=== PATIENT | female | born 1990 | race Caucasian/White ===

== ENCOUNTER 2019-12-27 11:42 | Inpatient (IN) | payer BC ==
--- NOTE | 2019-12-27 13:15 | US ---
Biophysical profile: Multiple real-time images were obtained transabdominally. Comparison: Previous obstetrical ultrasound of 08/16/19. Dates: Current ultrasound: REJI 01/16/20, gestational age 37 weeks 1 day Earliest ultrasound (08/16/19): REJI 12/29/19, gestational age 39 weeks 5 days presentation: Cephalic Placenta: Anterior Amniotic fluid: JUICE 15.62 cm Measurements: BPD: 8.94 cm - 36 weeks 2 days Head circumference: 31.95 cm - 36 weeks 0 days Abdominal circumference: 34.29 cm - 38 weeks 2 days Estimated weight: 3241 g (7 lbs. 2 oz.), estimated weight is 68th percentile for age by current ultrasound Heart rate: 138 BPM Cervical length: 3.3 cm Growth curves: Various growth parameters are variable between the -2 and mean standard deviation lines. Growth is felt to be appropriate from prior study when allowing for variability at this later gestational age. Biophysical profile: movement 0, breathing movement 2, tone 0, amniotic fluid volume 2 Impression: 1. Single intrauterine fetus currently cephalic in presentation. Dates as noted above. 2. growth is felt to be appropriate when allowing for variability at this later gestational age. 3. For out of 8 on biophysical profile. Diagnostic code #5 This report was dictated in MDT
[2019-12-27] MEDS ORDERED: Sodium Chloride 0.9% 10 ML Syringe FLUSH PRN (13:39)
[2019-12-27] MEDS ORDERED: Ondansetron 4 MG/2 ML SDV IVPUSH PRN (13:39)
[2019-12-27] MEDS ORDERED: Nalbuphine 10 MG/ML Syringe IVPUSH PRN (13:39)
[2019-12-27] MEDS ORDERED: Oxytocin/Lactated Ringers 10 UNIT/1,000 ML BAG IV SCH (13:45)
--- NOTE | 2019-12-27 14:15 | PCM.LDHP ---
L&D History of Present Illness - General Date of Service: 12/27/19 Admit Problem/Dx: Patient Status Order with Admit Dx/Problem 12/27/19 11:57 Patient Status [ADT] Routine 12/27/19 13:39 Patient Status [ADT] Routine 12/27/19 13:58 Admission Status [Patient Status] [ADT] Routine Admission Diagnosis/Problem Admission Diagnosis/Problem Source of Information: Patient History Limitations: Reports: No Limitations - History of Present Illness Introduction:: 29 y/o REJI 12/31/2019 EGA 39w3d [facility] c/o decreased movement. NST non-reactive in clinic, with irregular contractions noted. Patient stated she had been contractions on and off since yesterday. Patient sent to L&D for NST (which was reactive) and BPP also performed 11/19 with 0 for tone and 0 for movement. Cervix 3 cm and 100 % effaced, posterior, soft, vertex at 0 station. Amnipotomy performed at 1341 hrs, clear fluid. GBS negative. 06/06/2019 O positive, antibody screen negative, Hgb/Hch 12.3/37.3 Platelets [id number], rubella immune, urine culture mixed gabriele, HBsAg negative, HIV negative. GC/CT neg. RPR neg. 09/25/2019 H/H 10.9/32.6 Plt [id number], OBGS 125, 11/27/2019 GBS negative. Plan delivery, discussed with patient and and both in agreement prior to Amniotomy. 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 (See Below) (LSIL pap 2016) : 1 Para: 0 (0000) H&P Review of Systems - Review of Systems: Review Of Systems: See Below General: Reports: No Symptoms HEENT: Reports: No Symptoms Pulmonary: Reports: No Symptoms Cardiovascular: Reports: No Symptoms Gastrointestinal: Reports: No Symptoms Genitourinary: Reports: No Symptoms Musculoskeletal: Reports: No Symptoms Skin: Reports: No Symptoms Psychiatric: Reports: No Symptoms Neurological: Reports: No Symptoms Hematologic/Lymphatic: Reports: No Symptoms Immunologic: Reports: No Symptoms L&D Exam - Exam Exam: See Below - Vital Signs Weight: 181 lb 6.4 oz - OB Specific Fundal Height In cm: 39 Contraction Duration (sec): 60 Contraction Frequency (min): 5 Contraction Intensity: Mild Movement: Active Heart Tones: Present Heart Tones per Min: 135 Heart Rate (FHR) Variability: Moderate (6-25 bmp) Presentation: Vertex - Martin Score Martin Score Cervix Position: Posterior Martin Score Consistency: Soft Martin Score Effacement: >80% Martin Score Dilation: 3-4 cm Martin Score 's Station: -1 ,0 Martin Score Total: 9 - Exam General: Alert, Oriented HEENT: Conjunctiva Clear, Pupils Equal Neck: Supple, Trachea Midline Lungs: Clear to Auscultation, Normal Respiratory Effort Cardiovascular: Regular Rate, Regular Rhythm GI/Abdominal Exam: Normal Bowel Sounds, Soft, Non-Tender Genitourinary: Normal external exam Extremities: Normal Inspection, Non-Tender, No Pedal Edema, Normal Capillary Refill Skin: Warm, Dry, Intact Neurological: Reflexes Equal Bilateral Psychiatric: Alert, Normal Affect, Normal Mood - Problem List (1) 39 weeks gestation of SNOMED Code(s): 94539808 ICD Code: Z3A.39 - 39 WEEKS GESTATION OF Status: Acute Current Visit: Yes (2) Decreased movement affecting management of mother, antepartum SNOMED Code(s): 450782125, 743800607 ICD Code: O36.8190 - DECREASED MOVEMENTS, UNSP TRIMESTER, UNSP Status : Acute Current Visit: Yes Qualifiers: Fetus number: single or unspecified fetus Qualified Code(s): O36.8190 - Decreased movements, unspecified trimester, not applicable or unspecified (3) Abnormal test SNOMED Code(s): 488441155, 773290312 ICD Code: O28.9 - UNSP ABNORMAL FINDINGS ON SCREENING OF MOTHER Status: Acute Current Visit: Yes Problem List Initiated/Reviewed/Updated: No Orders Last 24hrs: Active Orders 24 hr Category Date Time Status Admission Status [Patient Status] [ADT] Routine ADT 12/27/19 13:58 Active Patient Status [ADT] Routine ADT 12/27/19 13:39 Active Activity as Tolerated [RC] PFP Care 12/27/19 13:39 Active Communication Order [RC] ASDIRECTED Care 12/27/19 13:39 Active Heart Tones [RC] ASDIRECTED Care 12/27/19 13:39 Active Non Stress Test [RC] PER UNIT ROUTINE Care 12/27/19 11:57 Active Notify Provider [RC] PFP Care 12/27/19 13:39 Active Notify Provider [RC] PRN Care 12/27/19 13:39 Active Peripheral IV Care [RC] . DIRECTED Care 12/27/19 13:39 Active Vital Signs [RC] PER UNIT ROUTINE Care 12/27/19 11:57 Active Regular Diet [DIET] Diet 12/27/19 Dinner Active CBC WITH AUTO DIFF [HEME] Stat Lab 12/27/19 13:55 Received RAPID PLASMA REAGIN,RPR [CHEM] Routine Lab 12/27/19 13:55 Received TYPE AND SCREEN [BBK] Stat Lab 12/27/19 13:55 Received Lactated Ringers [Ringers, Lactated] 1,000 ml Med 12/27/19 13:45 Active IV ASDIRECTED Lidocaine 1% [Xylocaine 1%] Med 12/27/19 18:00 Once 50 ml INJECT ONETIME ONE Nalbuphine [Nubain] Med 12/27/19 13:39 Active 10 mg IVPUSH Q2H PRN Ondansetron [Zofran] Med 12/27/19 13:39 Active 4 mg IVPUSH Q4H PRN Oxytocin/Lactated Ringers [Pitocin in LR 10 Units/1,000 Med 12/27/19 13:45 Active ML] 10 unit in 1,000 ml IV .CONTINUOUS Sodium Chloride 0.9% [Saline Flush] Med 12/27/19 13:39 Active 10 ml FLUSH ASDIRECTED PRN Electronic Heart Tones Ext w TOCO [WOMSER] Oth 12/27/19 13:39 Ordered Routine Electronic Heart Tones Internal [WOMSER] Per Unit Oth 12/27/19 13:39 Ordered Routine Peripheral IV Insertion Adult [OM.PC] Routine Oth 12/27/19 13:39 Ordered Resuscitation Status Routine Resus Stat 12/27/19 11:57 Ordered Medication Orders Lactated Ringer's (Ringers, Lactated) 1,000 mls @ 100 mls/hr IV ASDIRECTED LISA Oxytocin/Lactated Ringer's (Pitocin In Lr 10 Units/1,000 Ml) 10 unit in 1,000 mls @ 500 mls/hr IV .CONTINUOUS LISA Lidocaine HCl (Xylocaine 1%) 50 ml INJECT ONETIME ONE Stop: 12/27/19 18:01 Nalbuphine HCl (Nubain) 10 mg IVPUSH Q2H PRN PRN Reason: Pain Ondansetron HCl (Zofran) 4 mg IVPUSH Q4H PRN PRN Reason: Nausea/Vomiting Sodium Chloride (Saline Flush) 10 ml FLUSH ASDIRECTED PRN PRN Reason: Keep Vein Open Assessment/Plan Comment:: Plan delivery.
[2019-12-27] MEDS: Lactated Ringers 1,000 ML IV SCH ×3 (15:00→16:53)
[2019-12-27] MEDS ORDERED: Bupivacaine/fentaNYL/NS 100 ML Bag EPIDUR PRN (15:24)
[2019-12-27] MEDS ORDERED: ePHEDrine 50 MG/ML SDV IVPUSH PRN (15:24)
[2019-12-27] MEDS ORDERED: fentaNYL 100 MCG/2 ML SDV EPIDUR PRN (15:24)
[2019-12-27] MEDS ORDERED: diphenhydrAMINE 50 MG/ML SDV IVPUSH PRN (15:24)
--- NOTE | 2019-12-27 16:26 | PCM.PREANE ---
Preanesthetic Assessment - Procedure Proposed Procedure: Epidural - Anesthesia/Transfusion/Family Hx Anesthesia History: No Prior Anesthesia Family History of Anesthesia Reaction: No Transfusion History: No Prior Transfusion(s) - Review of Systems General: No Symptoms Pulmonary: No Symptoms Cardiovascular: No Symptoms Gastrointestinal: Abdominal Pain Neurological: Other (Back injury from softball years ago, sciatic pain aggrivated by . ) Other: Reports: None - Physical Assessment Vital Signs: Last Vital Signs Temp 36.4 C 12/27/19 11:57 Pulse 74 12/27/19 11:57 Resp 15 12/27/19 11:57 BP 129/75 12/27/19 11:57 Pulse Ox 99 12/27/19 11:57 Height: 1.63 m Weight: 82.282 kg ASA Class: 2 Mental Status: Alert & Oriented x3 Airway Class: Mallampati = 1 Dentition: Reports: Normal Dentition Thyro-Mental Finger Breadths: 3 Mouth Opening Finger Breadths: 3 ROM/Head Extension: Full Lungs: Clear to Auscultation, Normal Respiratory Effort Cardiovascular: Regular Rate, Regular Rhythm - Lab Values: Laboratory Last Values WBC 12.72 K/mm3 (3.98-10.04) H 12/27/19 13:55 RBC 4.25 M/mm3 (3.98-5.22) 12/27/19 13:55 Hgb 12.7 gm/dl (11.2-15.7) D 12/27/19 13:55 Hct 38.3 % (34.1-44.9) 12/27/19 13:55 MCV 90.1 fl (79.4-94.8) 12/27/19 13:55 MCH 29.9 pg (25.6-32.2) 12/27/19 13:55 MCHC 33.2 g/dl (32.2-35.5) 12/27/19 13:55 RDW Std Deviation 43.7 fL (36.4-46.3) 12/27/19 13:55 Plt Count 265 K/mm3 (182-369) 12/27/19 13:55 MPV 9.9 fl (9.4-12.3) 12/27/19 13:55 Neut % (Auto) 73.6 % (34.0-71.1) H 12/27/19 13:55 Lymph % (Auto) 18.9 % (19.3-51.7) L 12/27/19 13:55 Clinch % (Auto) 6.7 % (4.7-12.5) 12/27/19 13:55 Eos % (Auto) 0.4 (0.7-5.8) L 12/27/19 13:55 Baso % (Auto) 0.2 % (0.1-1.2) 12/27/19 13:55 Neut # (Auto) 9.37 K/mm3 (1.56-6.13) H 12/27/19 13:55 Lymph # (Auto) 2.40 K/mm3 (1.18-3.74) 12/27/19 13:55 Clinch # (Auto) 0.85 K/mm3 (0.24-0.36) H 12/27/19 13:55 Eos # (Auto) 0.05 K/mm3 (0.04-0.36) 12/27/19 13:55 Baso # (Auto) 0.02 K/mm3 (0.01-0.08) 12/27/19 13:55 Manual Slide Review Normal smear 12/27/19 13:55 Blood Type O POSITIVE 12/27/19 13:55 Gel Antibody Screen Negative 12/27/19 13:55 - Allergies Allergies/Adverse Reactions: Allergies Allergy/AdvReac Type Severity Reaction Status Date / Time No Known Allergies Allergy Verified 12/27/19 11:57 - Acknowledgements Anesthesia Type Planned: Epidural Pt an Appropriate Candidate for the Planned Anesthesia: Yes Alternatives and Risks of Anesthesia Discussed w Pt/Guardian: Yes Pt/Guardian Understands and Agrees with Anesthesia Plan: Yes 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) (LSIL pap 2016) - Past Surgical History HEENT Surgical History: Reports: Other (See Below) Other HEENT Surgeries/Procedures: wisdom teeth extraction 2016 - SUBSTANCE USE Smoking Status *Q: Never Smoker Second Hand Smoke Exposure: No Recreational Drug Use History: No - HOME MEDS Home Medications: Home Meds Ferrous Sulfate [Iron] 1 mg PO DAILY 12/27/19 [History] Vit37/Iron/Folic Acid [Prenata] 1 each PO DAILY 12/27/19 [History] - CURRENT (IN HOUSE) MEDS Current Meds: Current Medications Diphenhydramine HCl (Benadryl) 25 mg IVPUSH Q6H PRN PRN Reason: pruritis Ephedrine Sulfate (Ephedrine Sulfate) 5 mg IVPUSH ASDIRECTED PRN PRN Reason: Hypotension Fentanyl (Sublimaze) 100 mcg EPIDUR Q3H PRN PRN Reason: Pain Last Admin: 12/27/19 15:51 Dose: 100 mcg Fentanyl/Bupivacaine HCl (Fentanyl/Bupivacaine/Ns 2 Mcg-0.125% 100 Ml) 100 ml EPIDUR ASDIRECTED PRN PRN Reason: Pain Last Admin: 12/27/19 15:51 Dose: 100 ml Lactated Ringer's (Ringers, Lactated) 1,000 mls @ 100 mls/hr IV ASDIRECTED LISA Last Admin: 12/27/19 15:50 Dose: 999 mls/hr Oxytocin/Lactated Ringer's (Pitocin In Lr 10 Units/1,000 Ml) 10 unit in 1,000 mls @ 500 mls/hr IV .CONTINUOUS LISA Lidocaine HCl (Xylocaine 1%) 50 ml INJECT ONETIME ONE Stop: 12/27/19 18:01 Nalbuphine HCl (Nubain) 10 mg IVPUSH Q2H PRN PRN Reason: Pain Ondansetron HCl (Zofran) 4 mg IVPUSH Q4H PRN PRN Reason: Nausea/Vomiting Sodium Chloride (Saline Flush) 10 ml FLUSH ASDIRECTED PRN PRN Reason: Keep Vein Open
[2019-12-27] MEDS ORDERED: Lidocaine 1% 50 ML MDV INJECT ONE (18:00)
[2019-12-27] MEDS ORDERED: Acetaminophen 325 MG Tab PO ONE (19:47)
--- NOTE | 2019-12-27 22:28 | PCM.SN.2 ---
- Free Text/Narrative Note: Patient has been pushing for about one hour. Turned off epidural to allow for more urge to push before patient becomes too exhausted. Cat I FHR.
--- NOTE | 2019-12-28 00:04 | PCM.SN.2 ---
- Free Text/Narrative Note: Patient pushing, epidural has been off x1 hour approximately. Vertex at +2/+3 station.
[2019-12-28] MEDS ORDERED: Lidocaine 1% 50 ML MDV ONE (01:13)
--- NOTE | 2019-12-28 01:38 | PCM.DEL ---
L & D Note - General Info Date of Service: 12/28/19 Mother's Due Date: 12/31/19 - Delivery Note Labor: Spontaneous, Augmented by Oxytocin Delivery Outcome: Livebirth (female liveborn 12/28/2018 at 0107 CHRISTOFER nuchal cord x1 under epidural with first degree laceration repaired with monocryl 3-0 x1. Weight 2910 g/6#6.6 oz. APGARS 7/8) Infant Delivery Method: Spontaneous Vaginal Delivery-Single Delivery Mode: Spontaneous Presentation: Right Occiput Anterior (CHRISTOFER) Nuchal Cord: Present (x1) Prep: Povidone-Iodine (Betadine Anesthesia Type: Combined Spinal Epidural, Local (for laceration repair) Anesthetic: Lidocaine (Xylocaine) 1% Plain Local Anesthetic Volume: Other (10 ml) Amniotic Fluid Description: Clear Episiotomy Type: None Laceration: 1st Degree Placenta: Intact, Spontaneous Cord: 3 Vessels Estimated Blood Loss: 250 Resuscitation Needed: No : Suctioned, Bulb Syringe, Cathether, Stimulated, Warmed, [place] Used, Warmer Used Provider: Chi Tubbs Score 1 min: 7 Score 5 min: 8 - General Info Date of Service: 12/28/19 Functional Status: Reports: Pain Controlled - Review of Systems General: Reports: No Symptoms HEENT: Reports: No Symptoms Pulmonary: Reports: No Symptoms Cardiovascular: Reports: No Symptoms Gastrointestinal: Reports: No Symptoms Genitourinary: Reports: No Symptoms Musculoskeletal: Reports: No Symptoms Skin: Reports: No Symptoms Neurological: Reports: No Symptoms Psychiatric: Reports: No Symptoms - Patient Data Vitals - Most Recent: Last Vital Signs Temp 99.2 F 12/27/19 19:56 Pulse 74 12/27/19 11:57 Resp 15 12/27/19 11:57 BP 129/75 12/27/19 11:57 Pulse Ox 99 12/27/19 11:57 Weight - Most Recent: 181 lb 6.4 oz I&O - Last 24 Hours: Intake & Output 12/27/19 12/27/19 12/28/19 14:59 22:59 06:59 Intake Total 240 Balance 240 Lab Results Last 24 Hours: Laboratory Results - last 24 hr 12/27/19 12/27/19 12/27/19 Range/Units 13:55 13:55 13:55 WBC 12.72 H (3.98-10.04) K/mm3 RBC 4.25 (3.98-5.22) M/mm3 Hgb 12.7 D (11.2-15.7) gm/dl Hct 38.3 (34.1-44.9) % MCV 90.1 (79.4-94.8) fl MCH 29.9 (25.6-32.2) pg MCHC 33.2 (32.2-35.5) g/dl RDW Std Deviation 43.7 (36.4-46.3) fL Plt Count 265 (182-369) K/mm3 MPV 9.9 (9.4-12.3) fl Neut % (Auto) 73.6 H (34.0-71.1) % Lymph % (Auto) 18.9 L (19.3-51.7) % [place] % (Auto) 6.7 (4.7-12.5) % Eos % (Auto) 0.4 L (0.7-5.8) Baso % (Auto) 0.2 (0.1-1.2) % Neut # (Auto) 9.37 H (1.56-6.13) K/mm3 Lymph # (Auto) 2.40 (1.18-3.74) K/mm3 [place] # (Auto) 0.85 H (0.24-0.36) K/mm3 Eos # (Auto) 0.05 (0.04-0.36) K/mm3 Baso # (Auto) 0.02 (0.01-0.08) K/mm3 Manual Slide Review Normal smear RPR Non-reactive (NONREACTIVE) Blood Type O POSITIVE Gel Antibody Screen Negative Med Orders - Current: Current Medications Diphenhydramine HCl (Benadryl) 25 mg IVPUSH Q6H PRN PRN Reason: pruritis Ephedrine Sulfate (Ephedrine Sulfate) 5 mg IVPUSH ASDIRECTED PRN PRN Reason: Hypotension Fentanyl (Sublimaze) 100 mcg EPIDUR Q3H PRN PRN Reason: Pain Last Admin: 12/27/19 15:51 Dose: 100 mcg Fentanyl/Bupivacaine HCl (Fentanyl/Bupivacaine/Ns 2 Mcg-0.125% 100 Ml) 100 ml EPIDUR ASDIRECTED PRN PRN Reason: Pain Last Admin: 12/27/19 15:51 Dose: 100 ml Lactated Ringer's (Ringers, Lactated) 1,000 mls @ 100 mls/hr IV ASDIRECTED LISA Last Infusion: 12/27/19 16:54 Dose: 200 mls/hr Oxytocin/Lactated Ringer's (Pitocin In Lr 10 Units/1,000 Ml) 10 unit in 1,000 mls @ 500 mls/hr IV .CONTINUOUS LISA Last Admin: 12/27/19 22:29 Dose: 500 mls/hr Nalbuphine HCl (Nubain) 10 mg IVPUSH Q2H PRN PRN Reason: Pain Ondansetron HCl (Zofran) 4 mg IVPUSH Q4H PRN PRN Reason: Nausea/Vomiting Sodium Chloride (Saline Flush) 10 ml FLUSH ASDIRECTED PRN PRN Reason: Keep Vein Open Discontinued Medications Acetaminophen (Tylenol) 650 mg PO NOW ONE Stop: 12/27/19 19:48 Last Admin: 12/27/19 19:56 Dose: 650 mg Lidocaine HCl (Xylocaine 1%) 50 ml INJECT ONETIME ONE Stop: 12/27/19 18:01 Lidocaine HCl (Xylocaine 1%) Confirm Administered Dose 50 ml .ROUTE .STK-MED ONE Stop: 12/28/19 01:14 - Exam General: Alert, Oriented HEENT: Pupils Equal, Mucous Membr. Moist/[place] Neck: Supple Lungs: Clear to Auscultation, Normal Respiratory Effort Cardiovascular: Regular Rate, Regular Rhythm (Female) Exam: Normal External Exam Extremities: Normal Inspection, Non-Tender, No Pedal Edema, Normal Capillary Refill - Problem List & Annotations (1) 39 weeks gestation of SNOMED Code(s): 89366651 Code(s): Z3A.39 - 39 WEEKS GESTATION OF Status: Acute Current Visit: Yes (2) Decreased movement affecting management of mother, antepartum SNOMED Code(s): 666140736, 649888307 Code(s): O36.8190 - DECREASED MOVEMENTS, UNSP TRIMESTER, UNSP Status : Acute Current Visit: Yes Qualifiers: Fetus number: single or unspecified fetus Qualified Code(s): O36.8190 - Decreased movements, unspecified trimester, not applicable or unspecified (3) Abnormal test SNOMED Code(s): 258498666, 472833373 Code(s): O28.9 - UNSP ABNORMAL FINDINGS ON SCREENING OF MOTHER Status: Acute Current Visit: Yes (4) Nuchal cord without compression, delivered, current hospitalization SNOMED Code(s): 49929148, 280567848 Code(s): O69.81X0 - LABOR AND DEL COMP BY CORD AROUND NECK, W/O COMPRSN, UNSP Status: Acute Current Visit: Yes (5) First degree perineal laceration during delivery SNOMED Code(s): 291476138 Code(s): O70.0 - FIRST DEGREE PERINEAL LACERATION DURING DELIVERY Status: Acute Current Visit: Yes - Problem List Review Problem List Initiated/Reviewed/Updated: No - My Orders Last 24 Hours: My Active Orders 12/27/19 11:57 Vital Signs [RC] PER UNIT ROUTINE Resuscitation Status Routine 12/27/19 13:39 Patient Status [ADT] Routine Activity as Tolerated [RC] PFP Communication Order [RC] ASDIRECTED Heart Tones [RC] ASDIRECTED Notify Provider [RC] PFP Notify Provider [RC] PRN Peripheral IV Care [RC] . DIRECTED Nalbuphine [Nubain] 10 mg IVPUSH Q2H PRN Ondansetron [Zofran] 4 mg IVPUSH Q4H PRN Sodium Chloride 0.9% [Saline Flush] 10 ml FLUSH ASDIRECTED PRN Electronic Heart Tones Ext w TOCO [WOMSER] Routine Electronic Heart Tones Internal [WOMSER] Per Unit Routine Peripheral IV Insertion Adult [OM.PC] Routine 12/27/19 13:45 Lactated Ringers [Ringers, Lactated] 1,000 ml IV ASDIRECTED Oxytocin/Lactated Ringers [Pitocin in LR 10 Units/1,000 ML] 10 unit in 1,000 ml IV .CONTINUOUS 12/27/19 13:58 Admission Status [Patient Status] [ADT] Routine 12/27/19 Dinner Regular Diet [DIET] - Plan Plan:: Plan delivery.
[2019-12-28] MEDS ORDERED: Docusate Sodium 100 MG Cap PO PRN (01:54)
[2019-12-28] MEDS ORDERED: Witch Hazel Medicated Pads 40/Jar TOP PRN (01:54)
[2019-12-28] MEDS ORDERED: Benzocaine/Menthol 20%-0.5% Spray 56 GM Canister TOP PRN (01:54)
[2019-12-28] MEDS ORDERED: Acetaminophen 325 MG Tab PO PRN (01:54)
[2019-12-28] MEDS ORDERED: Bupivacaine 0.25% 10 ML SDV ONE (03:00)
[2019-12-28] MEDS: Ibuprofen 600 MG Tab PO PRN ×3 (03:01→14:53)
[2019-12-29] MEDS: Ibuprofen 600 MG Tab PO PRN ×2 (02:32→09:52)
--- NOTE | 2019-12-29 10:53 | PCM.DCSUM1 ---
Discharge Summary - Hospital Course Free Text/Narrative:: [facility] LIVE L/D Delivery Note Patient Name: IMAN EUGENE Date of : 89 Patient Status: Inpatient Attending Provider: Chi Tubbs Date: 12/28/19 01:31 Initialization Date: 12/28/19 01:31 L & D Note - General Info Date of Service: 12/28/19 Mother's Due Date: 12/31/19 - Delivery Note Labor: Spontaneous, Augmented by Oxytocin Delivery Outcome: Livebirth (female liveborn 12/28/2018 at 0107 [address] nuchal cord x1 under epidural with first degree laceration repaired with monocryl 3-0 x1. Weight 2910 g/6#6.6 oz. APGARS 7/8) Delivery Method: Spontaneous Vaginal Delivery-Single Delivery Mode: Spontaneous Presentation: Right Occiput Anterior (CHRISTOFER) Nuchal Cord: Present (x1) Prep: Povidone-Iodine (Betadine Anesthesia Type: Combined Spinal Epidural, Local (for laceration repair) Anesthetic: Lidocaine (Xylocaine) 1% Plain Local Anesthetic Volume: Other (10 ml) Amniotic Fluid Description: Clear Episiotomy Type: None Laceration: 1st Degree Placenta: Intact, Spontaneous Cord: 3 Vessels Estimated Blood Loss: 250 Resuscitation Needed: No [place]: Suctioned, Bulb Syringe, Cathether, Stimulated, Warmed, [place] Used, Warmer Used Provider: Chi Tubbs Score 1 min: 7 Score 5 min: 8 - General Info Date of Service: 12/28/19 Functional Status: Reports: Pain Controlled - Review of Systems General: Reports: No Symptoms HEENT: Reports: No Symptoms Pulmonary: Reports: No Symptoms Cardiovascular: Reports: No Symptoms Gastrointestinal: Reports: No Symptoms Genitourinary: Reports: No Symptoms Musculoskeletal: Reports: No Symptoms Skin: Reports: No Symptoms Neurological: Reports: No Symptoms Psychiatric: Reports: No Symptoms - Patient Data Vitals - Most Recent: Last Vital Signs Temp 99.2 F 12/27/19 19:56 Pulse 74 12/27/19 11:57 Resp 15 12/27/19 11:57 BP 129/75 12/27/19 11:57 Pulse Ox 99 12/27/19 11:57 Weight - Most Recent: 181 lb 6.4 oz I&O - Last 24 Hours: Intake & Output 12/27/19 12/27/19 12/28/19 14:59 22:59 06:59 Intake Total 240 Balance 240 Lab Results Last 24 Hours: Laboratory Results - last 24 hr 12/27/19 12/27/19 12/27/19 Range/Units 13:55 13:55 13:55 WBC 12.72 H (3.98-10.04) K/mm3 RBC 4.25 (3.98-5.22) M/mm3 Hgb 12.7 D (11.2-15.7) gm/dl Hct 38.3 (34.1-44.9) % MCV 90.1 (79.4-94.8) fl MCH 29.9 (25.6-32.2) pg MCHC 33.2 (32.2-35.5) g/dl RDW Std Deviation 43.7 (36.4-46.3) fL Plt Count 265 (182-369) K/mm3 MPV 9.9 (9.4-12.3) fl Neut % (Auto) 73.6 H (34.0-71.1) % Lymph % (Auto) 18.9 L (19.3-51.7) % Reynolds % (Auto) 6.7 (4.7-12.5) % Eos % (Auto) 0.4 L (0.7-5.8) Baso % (Auto) 0.2 (0.1-1.2) % Neut # (Auto) 9.37 H (1.56-6.13) K/mm3 Lymph # (Auto) 2.40 (1.18-3.74) K/mm3 Reynolds # (Auto) 0.85 H (0.24-0.36) K/mm3 Eos # (Auto) 0.05 (0.04-0.36) K/mm3 Baso # (Auto) 0.02 (0.01-0.08) K/mm3 Manual Slide Review Normal smear RPR Non-reactive (NONREACTIVE) Blood Type O POSITIVE Gel Antibody Screen Negative Med Orders - Current: Current Medications Diphenhydramine HCl (Benadryl) 25 mg IVPUSH Q6H PRN PRN Reason: pruritis Ephedrine Sulfate (Ephedrine Sulfate) 5 mg IVPUSH ASDIRECTED PRN PRN Reason: Hypotension Fentanyl (Sublimaze) 100 mcg EPIDUR Q3H PRN PRN Reason: Pain Last Admin: 12/27/19 15:51 Dose: 100 mcg Fentanyl/Bupivacaine HCl (Fentanyl/Bupivacaine/Ns 2 Mcg-0.125% 100 Ml) 100 ml EPIDUR ASDIRECTED PRN PRN Reason: Pain Last Admin: 12/27/19 15:51 Dose: 100 ml Lactated Ringer's (Ringers, Lactated) 1,000 mls @ 100 mls/hr IV ASDIRECTED LISA Last Infusion: 12/27/19 16:54 Dose: 200 mls/hr Oxytocin/Lactated Ringer's (Pitocin In Lr 10 Units/1,000 Ml) 10 unit in 1,000 mls @ 500 mls/hr IV .CONTINUOUS LISA Last Admin: 12/27/19 22:29 Dose: 500 mls/hr Nalbuphine HCl (Nubain) 10 mg IVPUSH Q2H PRN PRN Reason: Pain Ondansetron HCl (Zofran) 4 mg IVPUSH Q4H PRN PRN Reason: Nausea/Vomiting Sodium Chloride (Saline Flush) 10 ml FLUSH ASDIRECTED PRN PRN Reason: Keep Vein Open Discontinued Medications Acetaminophen (Tylenol) 650 mg PO NOW ONE Stop: 12/27/19 19:48 Last Admin: 12/27/19 19:56 Dose: 650 mg Lidocaine HCl (Xylocaine 1%) 50 ml INJECT ONETIME ONE Stop: 12/27/19 18:01 Lidocaine HCl (Xylocaine 1%) Confirm Administered Dose 50 ml .ROUTE .STK-MED ONE Stop: 12/28/19 01:14 - Exam General: Alert, Oriented HEENT: Pupils Equal, Mucous Membr. Moist/Parkin Neck: Supple Lungs: Clear to Auscultation, Normal Respiratory Effort Cardiovascular: Regular Rate, Regular Rhythm (Female) Exam: Normal External Exam Extremities: Normal Inspection, Non-Tender, No Pedal Edema, Normal Capillary Refill - Problem List & Annotations (1) 39 weeks gestation of SNOMED Code(s): 86832808 Code(s): Z3A.39 - 39 WEEKS GESTATION OF Status: Acute Current Visit: Yes (2) Decreased movement affecting management of mother, antepartum SNOMED Code(s): 589009929, 463071933 Code(s): O36.8190 - DECREASED MOVEMENTS, UNSP TRIMESTER, UNSP Status : Acute Current Visit: Yes Qualifiers: Fetus number: single or unspecified fetus Qualified Code(s): O36.8190 - Decreased movements, unspecified trimester, not applicable or unspecified (3) Abnormal test SNOMED Code(s): 588179215, 826633198 Code(s): O28.9 - UNSP ABNORMAL FINDINGS ON SCREENING OF MOTHER Status: Acute Current Visit: Yes (4) Nuchal cord without compression, delivered, current hospitalization SNOMED Code(s): 46943127, 151725810 Code(s): O69.81X0 - LABOR AND DEL COMP BY CORD AROUND NECK, W/O COMPRSN, UNSP Status: Acute Current Visit: Yes (5) First degree perineal laceration during delivery SNOMED Code(s): 580323878 Code(s): O70.0 - FIRST DEGREE PERINEAL LACERATION DURING DELIVERY Status: Acute Current Visit: Yes - Problem List Review Problem List Initiated/Reviewed/Updated: No - My Orders Last 24 Hours: My Active Orders 12/27/19 11:57 Vital Signs [RC] PER UNIT ROUTINE Resuscitation Status Routine 12/27/19 13:39 Patient Status [ADT] Routine Activity as Tolerated [RC] PFP Communication Order [RC] ASDIRECTED Heart Tones [RC] ASDIRECTED Notify Provider [RC] PFP Notify Provider [RC] PRN Peripheral IV Care [RC] . DIRECTED Nalbuphine [Nubain] 10 mg IVPUSH Q2H PRN Ondansetron [Zofran] 4 mg IVPUSH Q4H PRN Sodium Chloride 0.9% [Saline Flush] 10 ml FLUSH ASDIRECTED PRN Electronic Heart Tones Ext w TOCO [WOMSER] Routine Electronic Heart Tones Internal [WOMSER] Per Unit Routine Peripheral IV Insertion Adult [OM.PC] Routine 12/27/19 13:45 Lactated Ringers [Ringers, Lactated] 1,000 ml IV ASDIRECTED Oxytocin/Lactated Ringers [Pitocin in LR 10 Units/1,000 ML] 10 unit in 1,000 ml IV .CONTINUOUS 12/27/19 13:58 Admission Status [Patient Status] [ADT] Routine 12/27/19 Dinner Regular Diet [DIET] - Plan Plan:: Plan delivery. HPI Initial Comments: [facility] LIVE L/D Delivery Note Patient Name: IMAN EUGENE Date of : 89 Patient Status: Inpatient Attending Provider: Chi Tubbs Date: 12/28/19 01:31 Initialization Date: 12/28/19 01:31 L & D Note - General Info Date of Service: 12/28/19 Mother's Due Date: 12/31/19 - Delivery Note Labor: Spontaneous, Augmented by Oxytocin Delivery Outcome: Livebirth (female liveborn 12/28/2018 at 0[address] [place] nuchal cord x1 under epidural with first degree laceration repaired with monocryl 3-0 x1. Weight 2910 g/6#6.6 oz. APGARS 7/8) Delivery Method: Spontaneous Vaginal Delivery-Single Delivery Mode: Spontaneous Presentation: Right Occiput Anterior (CHRISTOFER) Nuchal Cord: Present (x1) Prep: Povidone-Iodine (Betadine Anesthesia Type: Combined Spinal Epidural, Local (for laceration repair) Anesthetic: Lidocaine (Xylocaine) 1% Plain Local Anesthetic Volume: Other (10 ml) Amniotic Fluid Description: Clear Episiotomy Type: None Laceration: 1st Degree Placenta: Intact, Spontaneous Cord: 3 Vessels Estimated Blood Loss: 250 Resuscitation Needed: No : Suctioned, Bulb Syringe, Cathether, Stimulated, Warmed, [place] Used, Warmer Used Provider: Chi Tubbs Score 1 min: 7 Score 5 min: 8 - General Info Date of Service: 12/28/19 Functional Status: Reports: Pain Controlled - Review of Systems General: Reports: No Symptoms HEENT: Reports: No Symptoms Pulmonary: Reports: No Symptoms Cardiovascular: Reports: No Symptoms Gastrointestinal: Reports: No Symptoms Genitourinary: Reports: No Symptoms Musculoskeletal: Reports: No Symptoms Skin: Reports: No Symptoms Neurological: Reports: No Symptoms Psychiatric: Reports: No Symptoms - Patient Data Vitals - Most Recent: Last Vital Signs Temp 99.2 F 12/27/19 19:56 Pulse 74 12/27/19 11:57 Resp 15 12/27/19 11:57 BP 129/75 12/27/19 11:57 Pulse Ox 99 12/27/19 11:57 Weight - Most Recent: 181 lb 6.4 oz I&O - Last 24 Hours: Intake & Output 12/27/19 12/27/19 12/28/19 14:59 22:59 06:59 Intake Total 240 Balance 240 Lab Results Last 24 Hours: Laboratory Results - last 24 hr 12/27/19 12/27/19 12/27/19 Range/Units 13:55 13:55 13:55 WBC 12.72 H (3.98-10.04) K/mm3 RBC 4.25 (3.98-5.22) M/mm3 Hgb 12.7 D (11.2-15.7) gm/dl Hct 38.3 (34.1-44.9) % MCV 90.1 (79.4-94.8) fl MCH 29.9 (25.6-32.2) pg MCHC 33.2 (32.2-35.5) g/dl RDW Std Deviation 43.7 (36.4-46.3) fL Plt Count 265 (182-369) K/mm3 MPV 9.9 (9.4-12.3) fl Neut % (Auto) 73.6 H (34.0-71.1) % Lymph % (Auto) 18.9 L (19.3-51.7) % Reynolds % (Auto) 6.7 (4.7-12.5) % Eos % (Auto) 0.4 L (0.7-5.8) Baso % (Auto) 0.2 (0.1-1.2) % Neut # (Auto) 9.37 H (1.56-6.13) K/mm3 Lymph # (Auto) 2.40 (1.18-3.74) K/mm3 Reynolds # (Auto) 0.85 H (0.24-0.36) K/mm3 Eos # (Auto) 0.05 (0.04-0.36) K/mm3 Baso # (Auto) 0.02 (0.01-0.08) K/mm3 Manual Slide Review Normal smear RPR Non-reactive (NONREACTIVE) Blood Type O POSITIVE Gel Antibody Screen Negative Med Orders - Current: Current Medications Diphenhydramine HCl (Benadryl) 25 mg IVPUSH Q6H PRN PRN Reason: pruritis Ephedrine Sulfate (Ephedrine Sulfate) 5 mg IVPUSH ASDIRECTED PRN PRN Reason: Hypotension Fentanyl (Sublimaze) 100 mcg EPIDUR Q3H PRN PRN Reason: Pain Last Admin: 12/27/19 15:51 Dose: 100 mcg Fentanyl/Bupivacaine HCl (Fentanyl/Bupivacaine/Ns 2 Mcg-0.125% 100 Ml) 100 ml EPIDUR ASDIRECTED PRN PRN Reason: Pain Last Admin: 12/27/19 15:51 Dose: 100 ml Lactated Ringer's (Ringers, Lactated) 1,000 mls @ 100 mls/hr IV ASDIRECTED LISA Last Infusion: 12/27/19 16:54 Dose: 200 mls/hr Oxytocin/Lactated Ringer's (Pitocin In Lr 10 Units/1,000 Ml) 10 unit in 1,000 mls @ 500 mls/hr IV .CONTINUOUS LISA Last Admin: 12/27/19 22:29 Dose: 500 mls/hr Nalbuphine HCl (Nubain) 10 mg IVPUSH Q2H PRN PRN Reason: Pain Ondansetron HCl (Zofran) 4 mg IVPUSH Q4H PRN PRN Reason: Nausea/Vomiting Sodium Chloride (Saline Flush) 10 ml FLUSH ASDIRECTED PRN PRN Reason: Keep Vein Open Discontinued Medications Acetaminophen (Tylenol) 650 mg PO NOW ONE Stop: 12/27/19 19:48 Last Admin: 12/27/19 19:56 Dose: 650 mg Lidocaine HCl (Xylocaine 1%) 50 ml INJECT ONETIME ONE Stop: 12/27/19 18:01 Lidocaine HCl (Xylocaine 1%) Confirm Administered Dose 50 ml .ROUTE .STK-MED ONE Stop: 12/28/19 01:14 - Exam General: Alert, Oriented HEENT: Pupils Equal, Mucous Membr. Moist/Parkin Neck: Supple Lungs: Clear to Auscultation, Normal Respiratory Effort Cardiovascular: Regular Rate, Regular Rhythm (Female) Exam: Normal External Exam Extremities: Normal Inspection, Non-Tender, No Pedal Edema, Normal Capillary Refill - Problem List & Annotations (1) 39 weeks gestation of SNOMED Code(s): 51012321 Code(s): Z3A.39 - 39 WEEKS GESTATION OF Status: Acute Current Visit: Yes (2) Decreased movement affecting management of mother, antepartum SNOMED Code(s): 728091166, 310825125 Code(s): O36.8190 - DECREASED MOVEMENTS, UNSP TRIMESTER, UNSP Status : Acute Current Visit: Yes Qualifiers: Fetus number: single or unspecified fetus Qualified Code(s): O36.8190 - Decreased movements, unspecified trimester, not applicable or unspecified (3) Abnormal test SNOMED Code(s): 951015127, 343911393 Code(s): O28.9 - UNSP ABNORMAL FINDINGS ON SCREENING OF MOTHER Status: Acute Current Visit: Yes (4) Nuchal cord without compression, delivered, current hospitalization SNOMED Code(s): 44344413, 480760437 Code(s): O69.81X0 - LABOR AND DEL COMP BY CORD AROUND NECK, W/O COMPRSN, UNSP Status: Acute Current Visit: Yes (5) First degree perineal laceration during delivery SNOMED Code(s): 444121855 Code(s): O70.0 - FIRST DEGREE PERINEAL LACERATION DURING DELIVERY Status: Acute Current Visit: Yes - Problem List Review Problem List Initiated/Reviewed/Updated: No - My Orders Last 24 Hours: My Active Orders 12/27/19 11:57 Vital Signs [RC] PER UNIT ROUTINE Resuscitation Status Routine 12/27/19 13:39 Patient Status [ADT] Routine Activity as Tolerated [RC] PFP Communication Order [RC] ASDIRECTED Heart Tones [RC] ASDIRECTED Notify Provider [RC] PFP Notify Provider [RC] PRN Peripheral IV Care [RC] . DIRECTED Nalbuphine [Nubain] 10 mg IVPUSH Q2H PRN Ondansetron [Zofran] 4 mg IVPUSH Q4H PRN Sodium Chloride 0.9% [Saline Flush] 10 ml FLUSH ASDIRECTED PRN Electronic Heart Tones Ext w TOCO [WOMSER] Routine Electronic Heart Tones Internal [WOMSER] Per Unit Routine Peripheral IV Insertion Adult [OM.PC] Routine 12/27/19 13:45 Lactated Ringers [Ringers, Lactated] 1,000 ml IV ASDIRECTED Oxytocin/Lactated Ringers [Pitocin in LR 10 Units/1,000 ML] 10 unit in 1,000 ml IV .CONTINUOUS 12/27/19 13:58 Admission Status [Patient Status] [ADT] Routine 12/27/19 Dinner Regular Diet [DIET] - Plan Plan:: Plan delivery. Brief History: [facility] LIVE . L/D Delivery Note. Patient Name: IMAN EUGENE [facility] Record Number: [id number]. Date of : Patient Status: Inpatient. Attending Provider: Chi Tubbs Number: [id number]. Date: 12/28/19 01:31Initialization Date: 12/28/19 01:31. L & D Note. - General Info. Date of Service: 12/28/19. Mother's Due Date: 12/31/19. - Delivery Note. Labor: Spontaneous, Augmented by Oxytocin. Delivery Outcome: Livebirth (female liveborn 12/28/2018 at 0107 [place] nuchal cord x1 under epidural with first degree laceration repaired with monocryl 3-0 x1. Weight 2910 g/6#6.6 oz. APGARS 7/8). Delivery Method: Spontaneous Vaginal Delivery-Single. Infant Delivery Mode: Spontaneous. Presentation : Right Occiput Anterior (CHRISTOFER). Nuchal Cord: Present (x1). Prep: Povidone- Iodine (Betadine. Anesthesia Type: Combined Spinal Epidural, Local (for laceration repair). Anesthetic: Lidocaine (Xylocaine) 1% Plain. Local Anesthetic Volume: Other (10 ml). Amniotic Fluid Description: Clear. Episiotomy Type: None. Laceration: 1st Degree. Placenta: Intact, Spontaneous. Cord: 3 Vessels. Estimated Blood Loss: 250. Resuscitation Needed: No. : Suctioned, Bulb Syringe, Cathether, Stimulated, Warmed, [place] Used, Warmer Used. Provider: Chi Tubbs. Score 1 min: 7. Score 5 min: 8. - General Info. Date of Service: 12/28/19. Functional Status: Reports: Pain Controlled. - Review of Systems. General: Reports: No Symptoms. HEENT: Reports: No Symptoms. Pulmonary: Reports: No Symptoms. Cardiovascular: Reports: No Symptoms. Gastrointestinal: Reports: No Symptoms. Genitourinary: Reports: No Symptoms. Musculoskeletal: Reports: No Symptoms. Skin: Reports: No Symptoms. Neurological: Reports: No Symptoms. Psychiatric: Reports: No Symptoms. - Patient Data. Vitals - Most Recent: Last Vital Signs. Temp 99.2 F 12/27/19 19:56. Pulse 74 12/27/19 11:57. Resp 15 11:57. BP 129/75 12/27/19 11:57. Pulse Ox 99 12/27/19 11:57. Weight - Most Recent: 181 lb 6.4 oz. I&O - Last 24 Hours: Intake & Output. 12/26/2004/ . 14:5922:5906:59. Intake [id number]. [id number]. Lab Results Last 24 Hours: Laboratory Results - last 24 hr. 12/26/2004/Range/ Units. 13:5513:5513:55. WBC 12.72 H (3.98-10.04) K/mm3. RBC 4.25 (3.98-5.22 ) M/mm3. Hgb 12.7 D (11.2-15.7) gm/dl. Hct 38.3 (34.1-44.9) %. MCV 90.1 ( 79.4-94.8) fl. MCH 29.9 (25.6-32.2) pg. MCHC 33.2 (32.2-35.5) g/dl. RDW Std Deviation 43.7 (36.4-46.3) fL. Plt Count 265 (182-369) K/mm3. MPV 9.9 ( 9.4-12.3) fl. Neut % (Auto) 73.6 H (34.0-71.1) %. Lymph % (Auto) 18.9 L ( 19.3-51.7) %. Reynolds % (Auto) 6.7 (4.7-12.5) %. Eos % (Auto) 0.4 L (0.7-5.8). Baso % (Auto) 0.2 (0.1-1.2) %. Neut # (Auto) 9.37 H (1.56-6.13) K/mm3. Lymph # (Auto) 2.40 (1.18-3.74) K/mm3. Reynolds # (Auto) 0.85 H (0.24-0.36) K/ mm3. Eos # (Auto) 0.05 (0.04-0.36) K/mm3. Baso # (Auto) 0.02 (0.01-0.08) K/ mm3. Manual Slide Review Normal smear. RPR Non-reactive (NONREACTIVE). Blood Type O POSITIVE. Gel Antibody Screen Negative. Med Orders - Current: Current Medications. Diphenhydramine HCl (Benadryl) 25 mg IVPUSH Q6H PRN. PRN Reason : pruritis. Ephedrine Sulfate (Ephedrine Sulfate) 5 mg IVPUSH ASDIRECTED PRN. PRN Reason: Hypotension. Fentanyl (Sublimaze) 100 mcg EPIDUR Q3H PRN. PRN Reason: Pain. Last Admin: 12/27/19 15:51 Dose: 100 mcg. Fentanyl/Bupivacaine HCl (Fentanyl/Bupivacaine/Ns 2 Mcg-0.125% 100 Ml) 100 ml EPIDUR ASDIRECTED PRN. PRN Reason: Pain. Last Admin: 12/27/19 15:51 Dose: 100 ml. Lactated Ringer's (Ringers, Lactated) 1,000 mls @ 100 mls/hr IV ASDIRECTED LISA. Last Infusion: 12/27/19 16:54 Dose: 200 mls/hr. Oxytocin/Lactated Ringer's ( Pitocin In Lr 10 Units/1,000 Ml) 10 unit in 1,000 mls @ 500 mls/hr IV .CONTINUOUS LISA. Last Admin: 12/27/19 22:29 Dose: 500 mls/hr. Nalbuphine HCl (Nubain) 10 mg IVPUSH Q2H PRN. PRN Reason: Pain. Ondansetron HCl (Zofran) 4 mg IVPUSH Q4H PRN. PRN Reason: Nausea/Vomiting. Sodium Chloride (Saline Flush ) 10 ml FLUSH ASDIRECTED PRN. PRN Reason: Keep Vein Open. Discontinued Medications. Acetaminophen (Tylenol) 650 mg PO NOW ONE. Stop: 12/27/19 19: 48. Last Admin: 12/27/19 19:56 Dose: 650 mg. Lidocaine HCl (Xylocaine 1%) 50 ml INJECT ONETIME ONE. Stop: 12/27/19 18:01. Lidocaine HCl (Xylocaine 1%) Confirm Administered Dose 50 ml .ROUTE .STK-MED ONE. Stop: 12/28/19 01:14. - Exam. General: Alert, Oriented. HEENT: Pupils Equal, Mucous Membr. Moist/ [place]. Neck: Supple. Lungs: Clear to Auscultation, Normal Respiratory Effort. Cardiovascular: Regular Rate, Regular Rhythm. (Female) Exam: Normal External Exam. Extremities: Normal Inspection, Non-Tender, No Pedal Edema, Normal Capillary Refill. - Problem List & Annotations. (1) 39 weeks gestation of . SNOMED Code(s): 93004923. Code(s): Z3A.39 - 39 WEEKS GESTATION OF Status: Acute Current Visit: Yes. (2) Decreased movement affecting management of mother, antepartum. SNOMED Code(s): 764366461 , 548090640. Code(s): O36.8190 - DECREASED MOVEMENTS, UNSP TRIMESTER, UNSP Status: Acute Current Visit: Yes. Qualifiers: Fetus number: single or unspecified fetus Qualified Code(s): O36.8190 - Decreased movements, unspecified trimester, not applicable or unspecified. (3) Abnormal test. SNOMED Code(s): 630513952, 741138593. Code(s): O28.9 - UNSP ABNORMAL FINDINGS ON SCREENING OF MOTHER Status: Acute Current Visit: Yes. (4) Nuchal cord without compression, delivered, current hospitalization. SNOMED Code(s): 24407834, 627914884. Code(s): O69.81X0 - LABOR AND DEL COMP BY CORD AROUND NECK, W/O COMPRSN, UNSP Status: Acute Current Visit: Yes. (5) First degree perineal laceration during delivery. SNOMED Code(s): 003634743. Code(s): O70.0 - FIRST DEGREE PERINEAL LACERATION DURING DELIVERY Status: Acute Current Visit: Yes. - Problem List Review. Problem List Initiated/ Reviewed/Updated: No. - My Orders. Last 24 Hours: My Active Orders. 11:57. Vital Signs [RC] PER UNIT ROUTINE. Resuscitation Status Routine. 13:39. Patient Status [ADT] Routine. Activity as Tolerated [RC] PFP. Communication Order [RC] ASDIRECTED. Heart Tones [RC] ASDIRECTED. Notify Provider [RC] PFP. Notify Provider [RC] PRN. Peripheral IV Care [RC] . DIRECTED. Nalbuphine [Nubain] 10 mg IVPUSH Q2H PRN. Ondansetron [Zofran ] 4 mg IVPUSH Q4H PRN. Sodium Chloride 0.9% [Saline Flush] 10 ml FLUSH ASDIRECTED PRN. Electronic Heart Tones Ext w TOCO [WOMSER] Routine. Electronic Heart Tones Internal [WOMSER] Per Unit Routine. Peripheral IV Insertion Adult [OM.PC] Routine. 12/27/19 13:45. Lactated Ringers [Ringers, Lactated] 1,000 ml IV ASDIRECTED. Oxytocin/Lactated Ringers [Pitocin in LR 10 Units/1,000 ML] 10 unit in 1,000 ml IV .CONTINUOUS. 12/27/19 13:58. Admission Status [Patient Status] [ADT] Routine. 12/27/19 Dinner. Regular Diet [DIET]. - Plan. Plan:: Plan delivery. Diagnosis: Stroke: No - Discharge Data Discharge Date: 12/29/19 Discharge Disposition: Home, Self-Care 01 Condition: Good - Referral to Home Health Primary Care Physician: PCP None - Discharge Diagnosis/Problem(s) (1) 39 weeks gestation of SNOMED Code(s): 55590427 ICD Code: Z3A.39 - 39 WEEKS GESTATION OF Status: Acute Current Visit: Yes (2) Decreased movement affecting management of mother, antepartum SNOMED Code(s): 226253021, 820083934 ICD Code: O36.8190 - DECREASED MOVEMENTS, UNSP TRIMESTER, UNSP Status : Acute Current Visit: Yes Qualifiers: Fetus number: single or unspecified fetus Qualified Code(s): O36.8190 - Decreased movements, unspecified trimester, not applicable or unspecified (3) Abnormal test SNOMED Code(s): 557336157, 315520774 ICD Code: O28.9 - UNSP ABNORMAL FINDINGS ON SCREENING OF MOTHER Status: Acute Current Visit: Yes (4) Nuchal cord without compression, delivered, current hospitalization SNOMED Code(s): 62963423, 315442570 ICD Code: O69.81X0 - LABOR AND DEL COMP BY CORD AROUND NECK, W/O COMPRSN, UNSP Status: Acute Current Visit: Yes (5) First degree perineal laceration during delivery SNOMED Code(s): 435485492 ICD Code: O70.0 - FIRST DEGREE PERINEAL LACERATION DURING DELIVERY Status: Acute Current Visit: Yes - Patient Summary/Data Complications: none Consults: none Hospital Course: uneventful - Patient Instructions Diet: Usual Diet as Tolerated Driving: Do Not Drive (x2 weeks) Showering/Bathing: December Shower Notify Provider of: Fever, Increased Pain, Swelling and Redness, Drainage, Nausea and/or Vomiting - Discharge Plan Home Medications: Home Meds Ferrous Sulfate [Iron] 1 mg PO DAILY 12/27/19 [History] Vit37/Iron/Folic Acid [Prenata] 1 each PO DAILY 12/27/19 [History] Acetaminophen [Tylenol] 650 mg PO Q6H PRN tablet 12/29/19 [Rx] Benzocaine/Menthol [Dermoplast Pain Relief [place]] 1 spray TOP ASDIRECTED PRN canister 12/29/19 [Rx] Docusate Sodium [Colace] 100 mg PO BID PRN cap 12/29/19 [Rx] Ibuprofen [Motrin] 600 mg PO Q6H PRN tablet 12/29/19 [Rx] witch Shruthi [Tucks] 1 pad TOP ASDIRECTED PRN pad 12/29/19 [Rx] - Discharge Summary/Plan Comment DC Time >30 min.: No - Patient Data Vitals - Most Recent: Last Vital Signs Temp 97.7 F 12/29/19 03:24 Pulse 60 12/29/19 03:24 Resp 14 12/29/19 03:24 BP 134/89 12/29/19 03:24 Pulse Ox 99 12/29/19 03:24 Weight - Most Recent: 181 lb 6.4 oz I&O - Last 24 hours: Intake & Output 12/28/19 12/29/19 12/29/19 22:59 06:59 14:59 Intake Total 120 Balance 120 Med Orders - Current: Current Medications Acetaminophen (Tylenol) 650 mg PO Q4H PRN PRN Reason: mild pain or fever Benzocaine/Menthol (Dermoplast Pain Relief [place]um) 0 gm TOP ASDIRECTED PRN PRN Reason: Perineal Comfort Measure Last Admin: 12/28/19 03:03 Dose: 1 canister Docusate Sodium (Colace) 100 mg PO BID PRN PRN Reason: Constipation Last Admin: 12/29/19 09:52 Dose: 100 mg Ibuprofen (Motrin) 600 mg PO Q4H PRN PRN Reason: Mild pain or fever Last Admin: 12/29/19 09:52 Dose: 600 mg Witch Shruthi (Tucks) 1 pad TOP ASDIRECTED PRN PRN Reason: Perineal Comfort Measure Last Admin: 12/28/19 03:02 Dose: 1 container Discontinued Medications Acetaminophen (Tylenol) 650 mg PO NOW ONE Stop: 12/27/19 19:48 Last Admin: 12/27/19 19:56 Dose: 650 mg Bupivacaine HCl (Sensorcaine-Mpf 0.25%) 10 ml .ROUTE .STK-MED ONE Stop: 12/28/19 03:01 Diphenhydramine HCl (Benadryl) 25 mg IVPUSH Q6H PRN PRN Reason: pruritis Ephedrine Sulfate (Ephedrine Sulfate) 5 mg IVPUSH ASDIRECTED PRN PRN Reason: Hypotension Fentanyl (Sublimaze) 100 mcg EPIDUR Q3H PRN PRN Reason: Pain Last Admin: 12/27/19 15:51 Dose: 100 mcg Fentanyl/Bupivacaine HCl (Fentanyl/Bupivacaine/Ns 2 Mcg-0.125% 100 Ml) 100 ml EPIDUR ASDIRECTED PRN PRN Reason: Pain Last Admin: 12/27/19 15:51 Dose: 100 ml Lactated Ringer's (Ringers, Lactated) 1,000 mls @ 100 mls/hr IV ASDIRECTED LISA Last Infusion: 12/27/19 16:54 Dose: 200 mls/hr Oxytocin/Lactated Ringer's (Pitocin In Lr 10 Units/1,000 Ml) 10 unit in 1,000 mls @ 500 mls/hr IV .CONTINUOUS LISA Last Admin: 12/27/19 22:29 Dose: 500 mls/hr Lidocaine HCl (Xylocaine 1%) 50 ml INJECT ONETIME ONE Stop: 12/27/19 18:01 Last Admin: 12/28/19 01:50 Dose: Not Given Lidocaine HCl (Xylocaine 1%) Confirm Administered Dose 50 ml .ROUTE .K-MED ONE Stop: 12/28/19 01:14 Last Admin: 12/28/19 01:51 Dose: 50 ml Nalbuphine HCl (Nubain) 10 mg IVPUSH Q2H PRN PRN Reason: Pain Ondansetron HCl (Zofran) 4 mg IVPUSH Q4H PRN PRN Reason: Nausea/Vomiting Sodium Chloride (Saline Flush) 10 ml FLUSH ASDIRECTED PRN PRN Reason: Keep Vein Open
--- NOTE | 2019-12-29 17:47 | PCM48HPAN ---
Post Anesthesia Note - EVALUATION WITHIN 48HRS OF ANESTHETIC Vital Signs in Normal Range: Yes Patient Participated in Evaluation: Yes Respiratory Function Stable: Yes Airway Patent: Yes Cardiovascular Function Stable: Yes Hydration Status Stable: Yes Pain Control Satisfactory: Yes Nausea and Vomiting Control Satisfactory: Yes Mental Status Recovered: Yes Vital Signs: Last Vital Signs Temp 36.5 C 12/29/19 03:24 Pulse 60 12/29/19 03:24 Resp 14 12/29/19 03:24 BP 134/89 12/29/19 03:24 Pulse Ox 99 12/29/19 03:24
== END 2019-12-29 13:00 | disposition home or self-care (01) | DRG 560 ==
LOC: JD.OBCHECK 11:42 → JD.OB 11:48 → JD.OBCHECK 13:39 → OBSVTOIN 12-28 01:07 → JD.MS 12-28 01:08 → JD.OB 12-28 14:35
PROVIDERS: ADMIT Obstetrics & Gynecology; ATTEND Obstetrics & Gynecology
PROC: 10E0XZZ Delivery of Products of Conception, External Approach (ICD-10-PCS; principal; 2019-12-28)
PROC: 3E0R3BZ Introduction of Anesthetic Agent into Spinal Canal, Percutaneous Approach (ICD-10-PCS; 2019-12-28)
PROC: 10907ZC Drainage of Amniotic Fluid, Therapeutic from Products of Conception, Via Natural or Artificial Opening (ICD-10-PCS; 2019-12-28)
DX: O69.81X0 Labor and delivery complicated by cord around neck, without compression, not applicable or unspecified (principal); Z3A.39 39 weeks gestation of pregnancy; Z37.0 Single live birth; O36.8130 Decreased fetal movements, third trimester, not applicable or unspecified; O70.0 First degree perineal laceration during delivery
CPT/HCPCS: 01967; 36415; 51702; 59025; 59409; 76816; 76819; 76819-26; 85025; 86592; 86850; 86900; 86901; A9270-GY; J2001; J2590; J3010; J3490; J7120

== ENCOUNTER 2021-10-02 16:51 | Inpatient (IN) | payer BC ==
[2021-10-02] MEDS ORDERED: Oxytocin/Lactated Ringers 10 UNIT/1,000 ML BAG IV SCH (17:00)
[2021-10-02] MEDS ORDERED: Sodium Chloride 0.9% 10 ML Syringe FLUSH PRN (17:00)
[2021-10-02] MEDS ORDERED: Ondansetron 4 MG/2 ML SDV IVPUSH PRN (17:00)
[2021-10-02] MEDS ORDERED: Nalbuphine 10 MG/1 ML Vial IVPUSH PRN (17:00)
[2021-10-02] MEDS ORDERED: Acetaminophen 325 MG Tab PO PRN ×2 (17:00→19:55)
[2021-10-02] MEDS ORDERED: Calcium Carbonate 500 MG Tab.Chew PO PRN (17:00)
[2021-10-02] MEDS ORDERED: Lactated Ringers 1,000 ML IV SCH (17:00)
[2021-10-02] MEDS ORDERED: Bupivacaine/fentaNYL/NS 100 ML Bag EPIDUR PRN (17:10)
[2021-10-02] MEDS ORDERED: diphenhydrAMINE 50 MG/ML SDV IVPUSH PRN (17:10)
[2021-10-02] MEDS ORDERED: ePHEDrine 50 MG/ML SDV IVPUSH PRN (17:10)
[2021-10-02] MEDS ORDERED: fentaNYL 100 MCG/2 ML SDV EPIDUR PRN (17:10)
[2021-10-02] MEDS ORDERED: LORazepam 0.5 MG Tab PO PRN (19:49)
[2021-10-02] MEDS ORDERED: Benzocaine/Menthol 20%-0.5% Spray 78 GM Cannister TOP PRN (19:55)
[2021-10-02] MEDS ORDERED: Witch Hazel Medicated Pads 40/Jar TOP PRN (19:55)
[2021-10-02] MEDS: Ibuprofen 600 MG Tab PO PRN (20:04)
[2021-10-02] MEDS ORDERED: Sodium Chloride 0.9% 10 ML Syringe FLUSH SCH (21:00)
[2021-10-02] MEDS ORDERED: Sertraline 50 MG Tab PO SCH (21:00)
[2021-10-03] MEDS: Ibuprofen 600 MG Tab PO PRN (02:15)
== END 2021-10-03 08:50 | disposition home or self-care (01) | DRG 560 ==
LOC: JD.OB 16:51 → JD.OBCHECK 16:51 → JD.OB 17:00 → OBSVTOIN 18:42 → JD.OB 18:43
PROVIDERS: ADMIT Obstetrics & Gynecology; ATTEND Obstetrics & Gynecology
PROC: 10E0XZZ Delivery of Products of Conception, External Approach (ICD-10-PCS; principal; 2021-10-02)
DX: O32.1XX0 Maternal care for breech presentation, not applicable or unspecified (principal); O60.14X0 Preterm labor third trimester with preterm delivery third trimester, not applicable or unspecified; Z37.0 Single live birth; O35.8XX0 Maternal care for other (suspected) fetal abnormality and damage, not applicable or unspecified; Z3A.35 35 weeks gestation of pregnancy
CPT/HCPCS: 36415; 59409; 85025; 86592; 86850; 86900; 86901; A9270-GY; J2300; J2590; J7120